=== PATIENT | male | born 1965 | race Caucasian/White ===

== ENCOUNTER 2024-10-26 08:25 | Emergency (ER) | payer OTHER, SELFPAY ==
--- NOTE | ~2024-10-26 | XR_ITS ---
EXAMINATION: XR chest 2V DATE: 10/26/2024 09:52 INDICATION: Syncope TECHNIQUE: PA and lateral views of the chest were obtained. COMPARISON: None FINDINGS: Small left paracardial fat pad and mild streaky bibasilar atelectasis. No other airspace opacities, p ulmonary edema, pleural effusion or pneumothorax. Heart size is normal. Mild thoracic spondylosis. IMPRESSION: 1. Mild streaky bibasilar atelectasis. No other acute cardiopulmonary disease. Reviewed, dictated and finalized at location A.
[2024-10-26 08:40] VITALS: BP 144/77; PULSE 85; RESP 16; TEMP 36.9; O2SAT 96
--- OUTSIDE RECORDS SUMMARY | 2024-10-26 08:57 | XMS_ITS | Clinical Summary ---
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 Name Role Phone Unavailable Primary Care Provider Unavailabl e Social History Tobacco Use Types Packs/Day Years Used Date Smoking Tobacco: Never Assessed Sex and Gender Information Value Date Recorded Sex Assigned at Not on file Legal Sex Male 10:41 AM EDT Gender Identity Not on file Sexual Orientation Not on file Plan of Treatment Health Maintenance Due Date Last Done Comments HEPATITIS C VIRUS SCREENING 1963 TETANUS 1963 HIV SCREENING DISCUSSION 08/13/1978 TDAP (ADULT) 08/13/1982 LIPID SCREENING 2003 COLORECTAL CANCER SCREENING DISCUSSION 08/13/2008 PNEUMOCOCCAL VACCINE SERIES (1 of 1 - PCV) 08/13/2013 ZOSTER (SHINGLES) VACCINE (1 of 2) 08/13/2013 PROSTATE CANCER SCREENING DISCUSSION 08/13/2018 COVID-19 VACCINE ( - 2023-2 5 season) 2023 INFLUENZA VACCINE (#1) 2024 RSV VACCINE (1 - 1-dose 75+ series) 08/13/2038 HEP B VACCINE Aged Out No longer elicherly cabral based on patient's age to complete this topic Insurance [facility]
--- NOTE | 2024-10-26 09:08 | ECG_ITS ---
Test Date: 2024-10-26 09:21:41 Measurements Intervals [place] Rate: 76 P: 50 WI: 115 QRS: 20 QRSD: 102 T: 60 QT: 384 QTc: 434 Interpretive Statements SINUS RHYTHM WITH SHORT WI INTERVAL INCOMPLETE RIGHT BUNDLE BRANCH BLOCK BORDERLINE ECG No previous ECG available for comparison Electronically Signed On 10-26-2024 12:31:21 CDT by Matthias Osorio D.O.
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
[2024-10-26 09:29] LABS: Hematocrit 42.8 % (42.0-52.0); Hemoglobin 14.5 g/dL (14.0-18.0); Immature Granulocyte Percent A 0.6 % (0-0.5); Lymphocytes Absolute Auto 1.08 K/mm3 (0.9-3.2); Mean Corpuscular HGB Conc 33.9 g/dl (32-36); Mean Corpuscular Hemoglobin 31.5 pg (26-34); Mean Corpuscular Volume 93.0 fl (80-100); Nucleated Red Blood Cells Absolute Auto 0.000 K/mm3 (0.0-0.012); Nucleated Red Blood Cells Perc 0.0 % (0.0-0.2); Platelet Count Result 264 k/mm3 (150-375); Red Blood Count 4.60 M/mm3 (4.6-6.20); White Blood Count 7.1 K/mm3 (4.5-10.0)
[2024-10-26 09:30] VITALS: BP 119/73; BP 123/69; BP 127/78; PULSE 82; PULSE 88; PULSE 90
[2024-10-26 09:42] LABS: Alanine Aminotransferase 37 U/L (6-50); Albumin Level 4.3 g/dL (3.5-5.1); Alkaline Phosphatase 79 U/L (38-126); Anion Gap 9 mmol/L (4-12); Aspartate Amino Transferase 34 U/L (17-59); Bilirubin,Total 0.5 mg/dL (0.2-1.3); Blood Urea Nitrogen 23 mg/dL (9-20); Calcium 9.3 mg/dL (8.4-10.2); Carbon Dioxide 25 mmol/L (22-30); Chloride 102 mmol/L (98-107); Estimated CRCL calculation 57 ml/min; Estimated Glomerular Filt Rate 55; Glucose 121 mg/dL (65-110); INR 1.0; Potassium 4.4 mmol/L (3.4-5.0); Prothrombin Time 13.6 Seconds (11.1-14.7); Sodium 136 mmol/L (137-145); Total Protein 7.2 g/dL (6.3-8.2)
[2024-10-26 09:43] LABS: Partial Thromboplastin Time 25.1 Seconds (22.3-36.8)
[2024-10-26 09:53] LABS: NT Pro B Type Natriuretic Pept 35 pg/mL (19.9-100); Troponin I < 0.012 ng/mL (0.000-0.034)
[2024-10-26 11:15] VITALS: BP 132/70; PULSE 80; RESP 16; O2SAT 97
== END 2024-10-26 11:15 | disposition home or self-care (01) ==
PROVIDERS: Emergency Provider Emergency Medicine
DX: R05.8 Other specified cough (principal)
CPT/HCPCS: 36415; 71046; 80053; 83880; 84484; 85025; 85610; 85730; 93005; 99284